=== PATIENT | male | born 1995 | race Caucasian/White ===

== ENCOUNTER 2018-08-07 16:58 | Emergency (ER) | payer SELFPAY ==
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
[2018-08-07] MEDS ORDERED: oxyCODONE TAB* 5 MG TAB PO ONE (18:55)
[2018-08-07] MEDS ORDERED: Ondansetron ODT TAB* 4 MG SL ONE (18:55)
[2018-08-07 19:30] LABS: ABS Basophils 0 10^3/ul (0-0.2); ABS Eosinophils 0 10^3/ul (0-0.6); ABS Lymphocytes 1.5 10^3/ul (1.0-4.8); ABS Monocytes 0.7 10^3/ul (0-0.8); ABS Neutrophils 4.9 10^3/ul (1.5-7.7); ABS Nucleated RBC 0 10^3/ul; Eosinophil % 0.2 %; Hematocrit 45 % (42-52); Hemoglobin 15.8 g/dl (14.0-18.0); Lymphocyte % 21.4 %; Mean Corpuscular HGB Conc 35 g/dl (31-36); Mean Corpuscular Hemoglobin 33 pg (27-31); Mean Corpuscular Volume 94 fL (80-94); Mean Platelet Volume 7.2 fL (7.4-10.4); Nucleated Red Blood Cells % 0; Platelet Count 245 10^3/ul (150-450); Red Blood Count 4.79 10^6/ul (4.00-5.40); Red Cell Distribution Width 14 % (10.5-15); White Blood Count 7.1 10^3/ul (3.5-10.8)
[2018-08-07 19:50] LABS: EGFR Non-African American 106.4 (>60)
[2018-08-07 20:59] VITALS: BP 119/67
== END 2018-08-07 20:57 | disposition home or self-care (01) ==
LOC: ED 16:58
DX: S06.0X1A Concussion with loss of consciousness of 30 minutes or less, initial encounter (principal); S39.012A Strain of muscle, fascia and tendon of lower back, initial encounter; S00.83XA Contusion of other part of head, initial encounter; V47.5XXA Car driver injured in collision with fixed or stationary object in traffic accident, initial encounter; Y92.410 Unspecified street and highway as the place of occurrence of the external cause
CPT/HCPCS: 36415; 70450; 72100; 80048; 85025; 99282; A9270-GY

== ENCOUNTER 2018-08-15 23:05 | Emergency (ER) | payer SELFPAY ==
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
[2018-08-15] MEDS ORDERED: Nicotine Inhaler* 10 MG AMP INH ONE (23:26)
[2018-08-15] MEDS ORDERED: Mouth Piece, Nicotine* 1 EACH CARTRIDGE ONE (23:27)
[2018-08-15] MEDS ORDERED: Nicotine Inhaler* 10 MG AMP ONE (23:27)
[2018-08-16 00:21] VITALS: BP 108/72
== END 2018-08-16 00:20 | disposition home or self-care (01) ==
LOC: ED 23:05
DX: F10.129 Alcohol abuse with intoxication, unspecified (principal)
CPT/HCPCS: 99282; A9270-GY

== ENCOUNTER 2019-05-11 21:29 | Emergency (ER) | payer OTHER ==
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
[2019-05-12] MEDS ORDERED: Bupivacaine 0.5% W/EPI SDV* 30 ML VIAL ONE (01:18)
[2019-05-12] MEDS ORDERED: Bupivacaine 0.5% W/EPI SDV* 10 ML VIAL INJ ONE (01:18)
[2019-05-12 01:27] VITALS: BP 128/94
== END 2019-05-12 01:26 | disposition home or self-care (01) ==
LOC: ED 21:29
DX: S60.031A Contusion of right middle finger without damage to nail, initial encounter (principal); W23.0XXA Caught, crushed, jammed, or pinched between moving objects, initial encounter; Y92.9 Unspecified place or not applicable; M79.641 Pain in right hand
CPT/HCPCS: 73140; 96374; 99282